=== PATIENT | female | born 1990 ===

== ENCOUNTER 2016-11-20 12:00 | Outpatient (RCR) | payer BC | END 2016-11-27 | disposition home or self-care (01) | LOC: WCC 12:00 | DX: T86.821 Skin graft (allograft) (autograft) failure (principal); Z90.13 Acquired absence of bilateral breasts and nipples | CPT/HCPCS: G0277 ×4 ==

== ENCOUNTER 2016-11-20 16:41 | Outpatient (RCR) | payer SELFPAY | END 2016-11-27 | disposition home or self-care (01) | LOC: WCC 16:41 | DX: T86.821 Skin graft (allograft) (autograft) failure (principal); Z90.13 Acquired absence of bilateral breasts and nipples | CPT/HCPCS: G0277; G0463; 99204 ==